=== PATIENT | female | born 1940 | race Caucasian/White ===

== ENCOUNTER 2021-05-02 14:03 | Outpatient (CLI) | payer OTHER, SELFPAY ==
--- NOTE | 2021-05-02 14:26 | MM_ITS ---
WS: [id number] BILATERAL DIGITAL SCREENING MAMMOGRAPHY WITH CAD CLINICAL INFORMATION: SCREEN HISTORY: Screening mammogram. No current complaints. COMPARISON: TECHNIQUE: Bilateral CC and MLO views. FINDINGS: Scattered fibroglandular densities bilaterally. Vascular calcification. No suspicious focal mass, asy mmetry, calcifications, or architectural distortion. No evidence of malignancy. MM/[place] [id number] IMPRESSION: BI-RADS: 2-Benign FOLLOW UP: 1 Year Follow-up Recommend return to annual screening mammography.
--- NOTE | 2021-05-02 14:28 | XR_ITS ---
WS: [id number] Exam: XR DEXA axial skeleton* [id number] Date/Time of Exam: 05/02/2021 2:56 PM Reason For Exam: OSTEOPOROSIS DEXA BONE DENSITOMETRY [employer] The L1-L4 bone mineral density measures 1.184 g/cm2. This corresponds to a T score of 0.0 and Z score of 1.3. Left femoral neck bone mineral density measures 0.827 g/cm2. This corresponds to T score of -1.4 and Z score of 0.3. Right femoral neck bone mineral density measures 0.833 g/cm2. This corresponds to a T score of -1.4 a nd Z score of 0.3. Mean femoral neck bone mineral density measures 0.830 g/cm2. This corresponds to a T score of -1.4 an d Z score of 0.3 XR/XR DEXA axial skeleton* [id number] IMPRESSION: Bone mineral density lies in the osteopenic range. Refer to detailed summary.
== END 2021-05-02 14:04 | disposition home or self-care (01) ==
PROVIDERS: PCP Family Medicine; Visit Provider Nurse Practitioner Family
DX: Z12.31 Encounter for screening mammogram for malignant neoplasm of breast (principal); M81.0 Age-related osteoporosis without current pathological fracture
CPT/HCPCS: 77067; 77080

== ENCOUNTER 2021-06-17 11:07 | Outpatient (CLI) | payer MEDICARE, SELFPAY ==
--- NOTE | 2021-06-17 11:14 | USCV_ITS ---
TreyIsabell Age: 80 Gender: F : 1940 Exam Date: 06/17/2021 11:42 Ordering Phys: Allie Temple NP Technologist: Oksana Barron [place] [facility] [place] KNOWN AAA HISTORY: Diameter (cm) AP x Transverse x Length Velocity (cm/s) Waveform Prox Aorta: 1.93 x 2.20 x 101.20 Mid Aorta: 2.17 x 1.95 x 119.20 Distal Aorta: 4.07 x 4.03 x 8.90 110.90 Right Iliac Prox: 0.62 x 0.75 x 214.80 Left Iliac Prox: 0.80 x 0.66 x 203.80 Stent Prox Landing x x Aneurysmal Sac Max x x Lt Lat Sac Dim Rt Lat Sac Dim Stent Dist Landing x x Right Iliac Stent x x Left Iliac Stent x x Right Renal Art Left Renal Art FINDINGS: Fusiform dilatation of the infrarenal aorta. Mild diffuse plaques in the abdominal aorta Normal proximal common iliac artery dimensions CONCLUSIONS 1. Infrarenal abdominal aortic aneurysm measuring 4.07 x 4.03 x 8.90 cm. Fusiform shaped aneurysm with no evidence of dissection 2. Mild diffuse plaques in the abdominal aorta 3. Normal proximal common iliac artery dimensions. 4. Elevated velocities in the proximal common iliac arteries may suggest less than 50% stenosis Compared to the the study from 01/12/2019, there may not be a significant change in the size of the aneurysm Dr Joe Olivarez MD [facility] (Electronically Signed) Final Date: 17 June 2021 20:13 S
== END 2021-06-17 11:08 | disposition home or self-care (01) ==
LOC: US 11:09
PROVIDERS: PCP Family Medicine; Visit Provider Nurse Practitioner Family
DX: I71.9 Aortic aneurysm of unspecified site, without rupture (principal); I70.0 Atherosclerosis of aorta
CPT/HCPCS: 93978

== ENCOUNTER → 2022-05-13 14:06 | Outpatient (BNVA) | payer MEDICARE, SELFPAY | PROVIDERS: PCP Family Medicine; Visit Provider Specialist | DX: M25.561 Pain in right knee (principal); M17.0 Bilateral primary osteoarthritis of knee; I71.4 Abdominal aortic aneurysm, without rupture | CPT/HCPCS: 73560; 73565; 99204 ==

== ENCOUNTER → 2022-05-28 08:38 | Outpatient (BNVA) | payer MEDICARE, SELFPAY | PROVIDERS: PCP Family Medicine; Visit Provider Thoracic Surgery (Cardiothoracic Vascular Surgery) | DX: I71.4 Abdominal aortic aneurysm, without rupture (principal) | CPT/HCPCS: 99203 ==

== ENCOUNTER 2022-06-17 11:34 | Outpatient (CLI) | payer MEDICARE, SELFPAY ==
--- NOTE | 2022-06-17 11:46 | MM_ITS ---
WS: [id number] BILATERAL SCREENING DIGITAL TOMOSYNTHESIS MAMMOGRAM WITH CAD HISTORY: SCREENING COMPARISON: 05/02/2021 and 07/31/2019 Bilateral CC and MLO views with tomosynthesis and synthetic mammography submitted. Computer aided det ection analyzed. Breast composition: There are scattered areas of fibroglandular density. No suspicious masses, microc alcifications or architectural distortion. Benign breast arterial calcifications. MM/[place] [id number] IMPRESSION: BI-RADS: 2-Benign FOLLOW UP: 1 Year Follow-up
== END 2022-06-17 11:35 | disposition home or self-care (01) ==
PROVIDERS: PCP Family Medicine; Visit Provider Family Medicine
DX: Z12.31 Encounter for screening mammogram for malignant neoplasm of breast (principal)
CPT/HCPCS: 77063; 77067

== ENCOUNTER 2022-07-22 07:24 | Outpatient (CLI) | payer MEDICARE, SELFPAY ==
--- NOTE | 2022-07-22 08:00 | USCV_ITS ---
Isabell Yang Age: 82 Gender: F : 1940 Exam Date: 07/22/2022 07:40 Ordering Phys: Rhoda Cruz MD Technologist: GERRY [place] [facility] [place] [facility] [place]: AAA HISTORY: Diameter (cm) AP x Transverse x Length Velocity (cm/s) Waveform Prox Aorta: 1.37 x 1.93 x 85.30 Mid Aorta: 1.80 x 1.87 x 110.60 Distal Aorta: 4.05 x 3.87 x 8.94 87.00 Right Iliac Prox: 0.82 x 1.15 x 178.80 Left Iliac Prox: 0.89 x 0.89 x 166.30 Stent Prox Landing x x Aneurysmal Sac Max x x Lt Lat Sac Dim Rt Lat Sac Dim Stent Dist Landing x x Right Iliac Stent x x Left Iliac Stent x x Right Renal Art Left Renal Art FINDINGS: comparison 06/17/21 CONCLUSIONS Distal infrarenal fusiform AAA measuring 4.1 x 3.8 x 8.9cm AP x transverse x craniocaudal unchanged Normal common iliac arteries Moderate atheromatous disease Troy Nova MD (Electronically Signed) Final Date: 22 July 2022 11:35 S
== END 2022-07-22 07:25 | disposition home or self-care (01) ==
LOC: RAD 07:24
PROVIDERS: PCP Family Medicine; Visit Provider Specialist
DX: Z86.79 Personal history of other diseases of the circulatory system (principal); I71.40 Abdominal aortic aneurysm, without rupture, unspecified; I70.90 Unspecified atherosclerosis
CPT/HCPCS: 93978

== ENCOUNTER → 2022-10-19 13:10 | Outpatient (BNVA) | payer MEDICARE, SELFPAY | PROVIDERS: PCP Family Medicine; Visit Provider Specialist | DX: M17.0 Bilateral primary osteoarthritis of knee (principal) | CPT/HCPCS: 99213 ==

== ENCOUNTER 2022-12-28 11:22 | Outpatient (CLI) | payer MEDICARE, SELFPAY ==
--- NOTE | 2022-12-28 11:00 | CT_ITS ---
WS: [id number] CT RIGHT KNEE, NONCONTRAST TECHNIQUE: Noncontrast CT of the RIGHT knee to include the RIGHT hip and ankle. CLINICAL INFORMATION: Right Total Knee Arthroplasty-[facility] PROTOCOL COMPARISON: None. DLP: 969.[address] scans at [facility] use at least one of these dose optimization techniques: automated e xposure control; mA and/or kV adjustment per patient size (includes targeted exams where dose is matc hed to clinical indication); or iterative reconstruction. FINDINGS: Mild degenerative arthritis both hips. Normal pubic rami. Vascular calcification. Small suprapatellar effusion. Moderate to advanced tricompartmental arthritis RIGHT knee worse in the medial joint gee rtment. Hypertrophic patella. Vascular calcification. Sigmoid diverticulosis. CT/CT knee RT [facility] IMPRESSION: Images obtained for preoperative purposes.
== END 2022-12-28 11:23 | disposition home or self-care (01) ==
LOC: RAD 11:28
PROVIDERS: PCP Family Medicine; Visit Provider Specialist
DX: M17.11 Unilateral primary osteoarthritis, right knee (principal); Z01.818 Encounter for other preprocedural examination; M16.0 Bilateral primary osteoarthritis of hip
CPT/HCPCS: 73700

== ENCOUNTER 2023-01-04 08:29 | Outpatient (CLI) | payer MEDICARE, SELFPAY ==
--- NOTE | 2023-01-04 08:45 | USCV_ITS ---
Isabell Yang Age: 82 Gender: F : 1940 Exam Date: 01/04/2023 08:42 Ordering Phys: Cedric Lema MD (Andy) ([email or web address]) Technologist: GERRY [place] [facility] [place]: aaa HISTORY: Diameter (cm) AP x Transverse x Length Velocity (cm/s) Waveform Prox Aorta: 2.61 x 2.38 x 48.50 Mid Aorta: 2.38 x 2.35 x 67.90 Distal Aorta: 4.55 x 4.82 x Right Iliac Prox: 1.17 x 1.26 x 196.80 Left Iliac Prox: 1.22 x 1.22 x 144.20 Stent Prox Landing x x Aneurysmal Sac Max x x Lt Lat Sac Dim Rt Lat Sac Dim Stent Dist Landing x x Right Iliac Stent x x Left Iliac Stent x x Right Renal Art Left Renal Art FINDINGS: Comparison:. 07/22/22. A fusiform abdominal aortic aneurysm is noted with a maximal diameter of 4.8 cm. Moderate increase in size of the aneurysm since the rior exam. AAA extends over a length of 9.5 cm. Ectatic abdominal aorta with evidence of atherosclerotic plaque noted. There is evidence of atherosclerotic plaque no significan stenosis in the right common iliac artery. There is evidence of atherosclerotic plaque no significan stenosis in the left common iliac artery. CONCLUSIONS Moderate increase in size of the AAA since the prior exam. Maximum diameter of 4.[address] Elaine De Leon DO (Electronically Signed) Final Date: 04 January 2023 09:35 S
== END 2023-01-04 08:30 | disposition home or self-care (01) ==
LOC: RAD 08:32
PROVIDERS: PCP Family Medicine; Visit Provider Thoracic Surgery (Cardiothoracic Vascular Surgery)
DX: I71.40 Abdominal aortic aneurysm, without rupture, unspecified (principal); I70.90 Unspecified atherosclerosis
CPT/HCPCS: 93005; 93978

== ENCOUNTER → 2023-01-11 11:22 | Outpatient (BNVA) | payer MEDICARE, SELFPAY | PROVIDERS: PCP Family Medicine; Visit Provider Specialist | DX: M17.11 Unilateral primary osteoarthritis, right knee (principal) | CPT/HCPCS: 99214 ==

== ENCOUNTER 2023-01-12 09:54 | Observation (INO) | payer MEDICARE, SELFPAY ==
[2023-01-04 09:16] VITALS: BMI 27.8
--- NOTE | 2023-01-04 09:30 | ECG_ITS ---
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 Measurements Intervals [place] Rate: 62 P: 61 NC: 183 QRS: -5 QRSD: 97 T: 20 QT: 410 QTc: 417 Interpretive Statements SINUS RHYTHM POSSIBLE INFERIOR MYOCARDIAL INFARCTION , PROBABLY OLD [30 ms Q WAVE IN II/aVF] No previous ECG available for comparison Electronically Signed On 01-04-2023 13:08:26 CDT by Kirk Birmingham M.D. [id number]
--- NOTE | 2023-01-04 09:58 | P.ANESASSM_ITS ---
Pre-Anesthetic Assessment Height/Weight: Height 1.63 m Weight 73.482 kg Operation Date: 01/12/23 07:00 Proposed Procedures p RIGHT TOTAL KNEE ARTHROPLAST WITH ITA ASSISTANCE 55491,M17.10(Right) - Rhoda Cruz MD Familial anesthetic complications: None Social No alcohol and No tobacco Exam alert, oriented x 3, clear to auscultation bilaterally and regular rate & rhythm Airway Mallampati: Class II Dentition: false and partials CV/HEM Hypertension AAA Chronic Renal Insufficiency GI Gastroesophageal Reflux Disease Anesthetic Plan ASA status: 3 Anesthesia: Regional (specify below) Risk of > 500 ml blood loss (7ml/kg in children): No Medications/Allergies Home Medications Medication Instructions Recorded Confirmed Last Taken Type alendronate 70 mg tablet mg PO 05/13/22 10/19/22 01/04/23 History diclofenac sodium 1 % topical gel 2 g topical QID 05/13/22 01/04/23 01/04/23 History (Arthritis Pain (diclofenac)) ezetimibe 10 mg tablet 10 mg PO DAILY 05/13/22 01/04/23 01/04/23 History tramadol 50 mg tablet 100 mg PO BID PRN Sleep 05/13/22 01/04/23 01/03/23 History lisinopril 5 mg tablet 20 mg PO DAILY 05/28/22 01/04/23 01/04/23 History cetirizine 10 mg capsule (Zyrtec) 10 mg PO DAILY PRN Allergic 01/04/23 01/04/23 01/03/23 History Symptoms famotidine 20 mg tablet 20 mg PO BID 01/04/23 01/04/23 01/03/23 History latanoprost 0.005 % eye drops 1 drp ophthalmic (eye) QPM 01/04/23 01/04/23 01/03/23 History spironolactone 25 1 tab PO DAILY 01/04/23 01/04/23 01/03/23 History mg-hydrochlorothiazide 25 mg tablet (Aldactazide) trazodone 100 mg tablet 100 mg PO DAILY 01/04/23 01/04/23 01/03/23 History Allergies Allergy/AdvReac Type Severity Reaction Status Date / Time No Known Allergies Allergy Verified 01/04/23 09:11 [facility] Anesthesia Social History Smoking and tobacco status: never smoked Second hand smoke exposure: No Smoking risk assessment/counseling performed?: No Alcohol intake: never Adopted: No Caregiver/support person: Yes Lives independently: No Housing: House Number of children: 4 Number of grandchildren: 8 service: No Current occupational status: retired Current occupational exposures/hazards: No Pets and animals: Yes History of recent travel: No Sexually active: No Current gender identity: Female Special klaus needs: No Agree to transfusion: No Data Anesthesia 01/04/23 09:30 01/04/23 09:30 Cardiac Studies: No Data to Display
[2023-01-04 09:59] LABS: Basophils % 0.6 %; Eosinophils # 0.1 10^3/uL (0.0-0.8); Eosinophils % 2.7 %; Hematocrit 37.5 % (37.0-47.0); Hemoglobin 12.1 g/dL (11.5-15.3); Lymphocytes # 1.6 10^3/uL (0.8-4.8); Lymphocytes % 29.5 %; Mean Corpuscular HGB Conc 32.3 g/dL (30.0-36.0); Mean Corpuscular Hemoglobin 31.4 pg (28.0-34.0); Mean Corpuscular Volume 97.4 fl (81-99); Mean Platelet Volume 10.9 fL (7.4-10.4); Monocytes # 0.5 10^3/uL (0.2-0.9); Monocytes % 9.3 %; Neutrophils # 3.04 10^3/uL (1.8-7.7); Neutrophils % 57.7 %; Nucleated Red Blood Cells % 0 %; Platelet Count 146 10^3/cmm (130-400); Red Blood Count 3.85 10^6/uL (4.1-5.3); Red Cell Distribution Width 11.8 % (12.1-15.1); White Blood Count 5.3 10^3/uL (4.0-10.0)
[2023-01-04 10:04] LABS: Alanine Aminotransferase 12 U/L (0-33); Alkaline Phosphatase 76 U/L (35-105); Anion Gap 11.7 (5-19); Aspartate Amino Transferase 21 U/L (0-32); Blood Urea Nitrogen 15 mg/dL (8-23); Calcium 8.9 mg/dL (8.5-10.5); Carbon Dioxide 28 mmol/L (22-29); Chloride 100 mmol/L (98-107); Glucose 96 mg/dL (65-115); Osmolality Calculated 283 mOsm/kg (285-295); Potassium 3.7 mmol/L (3.5-5.1); Sodium 136 mmol/L (136-145); Total Bilirubin 0.4 mg/dL (0.15-1.2)
[2023-01-04 10:41] LABS: Add Urine Culture? Yes; Bacteria Urine 4+ /hpf; Bilirubin Urine Neg (Negative); Blood Urine Neg (Negative); Glucose Urine UA Norm (Normal); Ketones Urine Negative (Negative); Leukocyte Esterase Urine Negative (Negative); Nitrate Urine Positive (Negative); Protein Urine Neg (Negative); RBC Urine RARE /hpf (0-2); Squamous Epithelial Cell Urine 0-4 /hpf (0-5); Urine Appearance Hazy (CLEAR); Urine Color Yellow (Yellow); Urobilinogen Urine Neg (Negative); WBC Urine 0-4 /hpf (0-5); pH Urine 5 (5-7)
[2023-01-12] VITALS (18 sets, daily range): BP systolic 95–152; BP diastolic 54–83; PULSE 76–102; RESP 13–18; TEMP 35.7–36.8; O2SAT 91–99
[2023-01-12] MEDS: acetaminophen 1,000 MG/100 ML PIGGYBACK 400 MG IV ×3 (05:54→22:35)
[2023-01-12] MEDS: CELEcoxib 200 mg Capsule 400 MG PO (05:56)
[2023-01-12] MEDS: gabapentin 300 mg Capsule PO (05:56)
[2023-01-12] MEDS: sodium chloride 0.9% 1,000 ML 30 ML IV (06:00)
--- NOTE | 2023-01-12 06:38 | P.HPUD_ITS ---
Surgery/Procedure H&P Update DATE OF PROCEDURE: January 12, 2023 DATE H&P PERFORMED: 01/11/23 H&P UPDATE INFORMATION: I have reviewed H&P completed within last 30 days, I have examined patient prior to procedure, No changes to prior documentation and H&P is in [facility] [place] EMR on date indicated PREOP DIAGNOSIS: Primary osteoarthritis right knee PLANNED PROCEDURE: Operation Date: 01/12/23 07:00 Proposed Procedures p RIGHT TOTAL KNEE ARTHROPLAST WITH ITA ASSISTANCE 57094,M17.10(Right) - Rhoda Cruz MD Related Problem List Diagnoses (1) Primary osteoarthritis of right knee:
--- NOTE | 2023-01-12 06:39 | P.ANESUD_ITS ---
Pre-Anesthetic Update Pre-Anesthetic Assessment: Date of Surgery/Procedure: 01/12/23 Preop Betty gnosis: Primary osteoarthritis right knee Proposed Procedure: Operation Date: 01/12/23 07:00 Proposed Procedures p RIGHT TOTAL KNEE ARTHROPLAST WITH ITA ASSISTANCE 56203,M17.10(Right) - Rhoda Cruz MD Any changes to Pre-Anesthetic Assessment?: No Last Intake: Intake Last Liquid Date 01/11/23 Last Liquid Time 14:00 Last Solid Date 01/11/23 Last Solid Time 14:00 Vitals: Temperature 97.8 F 01/12/23 05:42 Temperature Source Temporal Artery S can 01/12/23 05:42 Pulse Rate 76 01/12/23 05:42 Respiratory Rate 18 01/12/23 05:42 Blood Pressure 152/83 01/12/23 05:42 Blood Pressure Gwen n 106 01/12/23 05:42 Pulse Oximetry 94 01/12/23 05:42 Oxygen Delivery Me thod 01/12/23 05:42 Exam: Pre-Anes Outpt Exam: alert, oriented x 3, clear to auscultation bilaterally and regular rate & rhythm Cardiac Studies: No Data to Display
--- NOTE | 2023-01-12 06:40 | ANES.PROC ---
Anesthesia Procedures Procedure/Date: 01/12/23 Nerve Block ^: Nerve Block 1: Main Anesthesia: spinal anesthesia block Time Out Performed: Yes Consent: requested by attending/covering physician, from patient, risks and benefits reviewed and patient agrees to proceed Nerve block location: adductor canal (R) Anesthesia monitors applied: pulse oximetry, EKG, BP cuff and oxygen Nerve block position: supine Anesthetic Used: ropivicaine 0.5% (30 ml) and with decadron (4 mg) Ultrasound used to: recognize landmarks and visualize and ID femerol nerve Nerve Stimulator Used?: No Interscalene/Femoral BLK: 4 stimuplex 21 g needle used for position and inplane approach, visualize local anesthetic spread and no vascular puncture identified Injection: neg aspiration of heme Patient Tolerated Procedure: well Complications: none
[2023-01-12] MEDS: ceFAZolin 2,000 MG in sodium chloride 0.9% (plus) 50 ML 100 MG IV ×2 (07:03→17:35)
[2023-01-12] MEDS: ceFAZolin 1,000 mg SDV 1000 MG IRRIGATION (08:13)
[2023-01-12] MEDS: vancomycin 1,000 MG SDV 1000 MG XX (08:13)
--- NOTE | 2023-01-12 09:36 | PM.OP ---
Operative Report Date of procedure: January 12, 2023 Pre-op diagnosis: Primary osteoarthritis right knee Post-op diagnosis: Primary osteoarthritis right knee Post-op findings: Significant flexion contracture right knee with severe degenerative osteoarthritis and large osteophytes Procedure done: Right total knee arthroplasty with Darren guidance Implants: The Anneliese total knee system with a size 4 triathlon beaded cruciate retaining femur right, a triathlon titanium tibial component size 4 beaded, a triathlon X3 tibial bearing CS insert size 4 X 13 mm and a beaded triathlon titanium asymmetric patella size 32 x 10 mm Specimens removed/disposition: Bone, disposed of Pathology: none sent Surgeon: Rhoda Cruz Correspondence Analyst: [employer] [facility] operating room technicians Anesthesia: MAC (With spinal, ASA 3, and with preoperative regional block) Estimated blood loss (mL): 175 Tourniquet time (min): 0 (No tourniquet utilized) IV fluids (mL): 1,100 Urine output (mL): 400 Complications: None Condition: stable Disposition: PACU (Then to floor for postoperative rehabilitation and pain management) Brief History: This is an established 82 year old female patient here today same-day total knee arthroplasty with Darren guidance. Patient continues to have pain to the knee and utilizes a wheel chair due to pain and instability of the knee.? Previously, we have discussed total knee arthroplasty, and the patient and her daughter understand the risks and complications of the procedure. Consents have been signed, and questions answered in the office. Preoperatively, the patient is seen in the preoperative holding area and further questions are answered. The patient's leg is marked. Confirmation of planned procedure is discussed. Procedure: The patient was brought to the operating theater, and after undergoing spinal anesthesia with supplemental MAC, as well as an adductor canal block, ASA 3, the right lower extremity was prepped with Dura-Prep and draped in usual fashion following placement of a tourniquet high on the leg. The leg was then draped free.? Tourniquet was not elevated during the case.? A surgical pause was performed, and at the time of the surgical pause, we confirmed the site and side of surgery. Additionally, we confirmed the appropriate and timely administration of preoperative antibiotics, Ancef 2 g and Transexemic acid 1 g.? The availability of equipment was confirmed, and the patient's identity was verbalized as well.? An additional transexemic acid 1 g was given at the end of the surgical procedure as well. Following the surgical pause, an incision was made centering over the patella continuing proximally and distally as necessary to allow access to the knee joint. Dissection continued through skin and soft tissues using a scalpel. Hemostasis was obtained using electrocautery. The skin incision was followed by a median parapatellar arthrotomy. The leg was extended and the patella was able to be displaced laterally.? Appropriate arrays and markers were placed in appropriate position for use of the Darren.? Preoperative planning had been accomplished and was discussed in detail with the [facility] circulation sales representative.? Intraoperative mapping of the femur and tibia was accomplished after the arrays were placed.? Internal markers were also placed.? Once we had accomplished the Darren mapping, we began the appropriate resections for placement of the prosthesis.? The plan was for a cruciate retaining right total knee arthroplasty. Once appropriate mapping had been accomplished retraction was established using manual retraction by surgical technicians and also the Darren leg positioner and retractors.? The knee was evaluated.? There was significant osteoarthritic change as well as slight flexion contracture.? Appropriate bone resection was accomplished using the Darren.? The femur was sized to a size 4.? Following femoral cuts, attention was directed to the tibia.? Osteophytes were removed prior to this portion of the procedure.? We had performed a minimal medial release at the beginning of the procedure to allow for placement of the array.? Proximal tibia was evaluated, and it was felt that appropriate size for the tibia was a size 4.? Tray was noted to fit nicely with good coverage.? Rim fit was accomplished with the size 4. A trial reduction was accomplished after osteophytes have been removed as well as the medial and lateral menisci.? We had removed the anterior cruciate ligament at the beginning of the case and preserved the posterior cruciate ligament.? Trial reduction was accomplished with a size 4 femoral cruciate retaining component and a size 4 CS tibial bearing insert which was 9 mm in thickness initially. Sequential increase in size of the insert was accomplished. Final trial insert was a size 12 mm with plans for actual implant to be a size 13 mm..? Alignment was felt to be appropriate as well.? Trial components were removed after the femur had been drilled.? Prior to removal of the tibial tray which had been pinned in position with appropriate rotation as determined by the Darren plan, we broached the tibia.? Subsequently, the 4 drill holes were made for the prosthetic component.? All trial components were removed, and the wound was irrigated.? Plans were made for insertion of the prosthetic components.? Prior to this, the patella was manually prepared.? After resection of the articular surface with the jogging system, it was measured and measured a 35 mm patella.? We resected approximately 10 mm of patella.? Patellar height was restored with the patellar component. Once again, the wound was irrigated.? The Tritanium tibia was impacted into position.? The beaded femur was then impacted into position in a cementless fashion. The CS tibial insert was placed prior to placement of the femoral component. The patella was pressed into position with a patellar clamp.? Exparel was injected about the components deep and superficially.? The knee was then copiously irrigated with betadine and saline and suctioned dry. Attention was then directed to closure. Closure was accomplished with 0 Vicryl in the fascial tissues.? This was followed by Surgiflo and vancomycin powder.? Following this, a 2-0 Monocryl was used in the subcutaneous tissues, and the skin was closed with skin janice.? Care was taken to assure an excellent subcutaneous as well as skin closure.? A sterile dressing was then placed consisting of Dermabond Prineo, OpSite, sterile soft roll including over the foot, and an Cj wrap. The patient was returned the Recovery Room in a satisfactory condition. X-rays were obtained and reviewed there.? The patient will be discharged to the floor for postoperative rehabilitation and pain management. Related Problem List Diagnoses (1) Primary osteoarthritis of right knee:
--- NOTE | 2023-01-12 09:59 | XR_ITS ---
WS: [id number] EXAMINATION: XR knee RT 3V* [id number] REASON FOR EXAM: Status post right total knee arthroplasty COMPARISON: Pre-op study 05/13/2022 ORDER DATE: 01/12/2023 10:03 AM FINDINGS: There is satisfactory alignment of the prostheses at the knee joint surgical janice are noted in the scan and there is intra-articular and subcutaneous gas from recent operative intervention. There is satisfactory prosthesis positioning of the total knee replacement components. There are some vascular calcifications posteriorly.. XR/XR knee RT 3V* [id number] IMPRESSION: Stable appearance of the recent total knee arthroplasty.
--- NOTE | 2023-01-12 10:14 | PC.NURSE ---
Ochoa secured to left leg
[2023-01-12] MEDS: oxyCODONE 5 mg IR Tab/Cap PO ×2 (11:54→17:36)
[2023-01-12] MEDS: chlorhexidine gluconate 0.12% Btl 473 mL 30 ML MUCOUS MEM ×3 (11:56→22:34)
--- NOTE | 2023-01-12 12:53 | ANE.PACU2 ---
Inpatient post-anesthesia follow up: Airway intact: Yes Vital signs: Temperature 96.3 F Pulse Rate 77 Respiratory Rate 16 Blood Pressure 146/74 Pulse Oximetry 97 Oxygen Delivery Me thod Room Air Oxygen Flow Rate 8 Fraction of Inspir ed Oxygen Hydration adequate: Yes Nausea and vomiting: No Pain level: 1 Mental status: Baseline
[2023-01-12] MEDS: calcium carbonate 500 mg Chew Tablet 1000 MG PO (17:34)
[2023-01-12] MEDS: sennosides-docusate Tablet 2 TAB PO (17:34)
[2023-01-12] MEDS: sulfamethoxazole-trimeth DS 160-800 mg Tablet 1 TAB PO (17:34)
[2023-01-12] MEDS: iron polysaccharide complex 150 mg Capsule PO (17:35)
[2023-01-12] MEDS: mupirocin oint 22 gm 1 APPLIC NASAL (17:35)
[2023-01-12] MEDS: CELEcoxib 200 mg Capsule PO (17:35)
[2023-01-12] MEDS: famotidine 20 mg Tablet PO (17:35)
[2023-01-12] MEDS: latanoprost 0.005% Op Soln 2.5 mL Btl 1 DROP OPHTHALMIC (22:34)
[2023-01-13] MEDS: ceFAZolin 2,000 MG in sodium chloride 0.9% (plus) 50 ML 100 MG IV ×2 (00:14→10:11)
[2023-01-13 04:00] VITALS: BP 104/58; PULSE 86; RESP 15; TEMP 36.7; O2SAT 90
[2023-01-13 05:47] LABS: Basophils % 0.1 %; Hematocrit 26.4 % (37.0-47.0); Hemoglobin 8.4 g/dL (11.5-15.3); Lymphocytes % 11.2 %; Mean Corpuscular HGB Conc 31.8 g/dL (30.0-36.0); Mean Corpuscular Hemoglobin 31.3 pg (28.0-34.0); Mean Corpuscular Volume 98.5 fl (81-99); Mean Platelet Volume 11.1 fL (7.4-10.4); Monocytes # 0.7 10^3/uL (0.2-0.9); Monocytes % 8.7 %; Neutrophils # 6.77 10^3/uL (1.8-7.7); Neutrophils % 79.8 %; Nucleated Red Blood Cells % 0 %; Platelet Count 124 10^3/cmm (130-400); Red Blood Count 2.68 10^6/uL (4.1-5.3); Red Cell Distribution Width 12.1 % (12.1-15.1); White Blood Count 8.5 10^3/uL (4.0-10.0)
[2023-01-13 06:02] LABS: Anion Gap 12.7 (5-19); Blood Urea Nitrogen 20 mg/dL (8-23); Carbon Dioxide 23 mmol/L (22-29); Chloride 107 mmol/L (98-107); Glucose 94 mg/dL (65-115); Osmolality Calculated 288 mOsm/kg (285-295); Potassium 4.7 mmol/L (3.5-5.1); Sodium 138 mmol/L (136-145)
[2023-01-13] MEDS: CELEcoxib 200 mg Capsule PO (06:26)
[2023-01-13] MEDS: acetaminophen 1,000 MG/100 ML PIGGYBACK 400 MG IV (06:26)
[2023-01-13 07:50] VITALS: PULSE 79; RESP 16; O2SAT 95
[2023-01-13 07:58] VITALS: BP 137/67; PULSE 88; RESP 16; TEMP 36.9; O2SAT 96
--- NOTE | 2023-01-13 08:56 | PC.NURSE ---
22 gauge inserted into left forearm. Flushed with 10mL of NS and got blood return. No pain upon assessment.
--- NOTE | 2023-01-13 09:15 | PC.CHAP ---
Pastoral Care Encounter/Spiritual Assessment Type of Contact [] Declined equipment planner visit [] Patient/Family/Request visit [] Outpatient visit [] Follow-up visit [] Physician referral [] Code/Alert [x] Routine visit [] Staff referral [] Actively dying [] Patient sleeping [] Family support [] [] Out of room [] Palliative care [] [] Receiving care in room [] Pre-surgical visit [] Trauma [] Long length of stay [] ICU visit [] Other: Relational/Emotional Strength [x] Patient feels connected with others/family/visitors/staff [] Distress [] Loneliness/isolation [] Abandonment Spirituality of Patient [x] Person of Holly [x] Attends Taoist of their Holly [x] Believes in Prayer [x] Reads Bible or Temple materials [] There are Spiritual issues to be addressed Commercial Lending Assistant Interventions [x] Prayer [x] Active listening [x] Non-anxious presence [x] Spiritual/emotional support [] Crisis/trauma care [] Spiritual counseling [] Bereavement support [] Provided bereavement packet [] Provided Bible/devotional materials [] Provided toy/stuffed animal, coloring book to patient or family member [] Provided Communion [] Anointing/Vida [] Salvation [x] Completed spiritual assessment [] Other: Impact on Illness or Injury [] Angry [] Fearful [] Anxious [] Often cries [] Exhaustion [] Unable to work [] Unable to attend taoist [] Unable to walk/stand [] Unable to read [] Unable to drive [] Unable to eat/drink [] Unable to sleep [] Unable to be with family [] Patient intubated [] Other: Summary Pt's daughter in room at the time of visit. She did most of the talking to equipment planner. Pt would speak Syrian but would also speak Colombian to her daughter. Did accept a Daily [employer] and daughter stated Pt can read Syrian but reads Colombian better. Hoping to be released today. Time spent with patient 5m
[2023-01-13] MEDS: iron polysaccharide complex 150 mg Capsule PO (09:44)
[2023-01-13] MEDS: lisinopril 20 mg Tablet PO (09:45)
[2023-01-13] MEDS: sulfamethoxazole-trimeth DS 160-800 mg Tablet 1 TAB PO (09:45)
[2023-01-13] MEDS: famotidine 20 mg Tablet PO (09:45)
[2023-01-13] MEDS: cholecalciferol (vitamin D3) 1,000 unit Tablet 1000 UNIT PO (09:45)
[2023-01-13] MEDS: multivitamin therapeutic Tablet 1 TAB PO (09:45)
[2023-01-13] MEDS: sennosides-docusate Tablet 2 TAB PO (09:45)
[2023-01-13] MEDS: ezetimibe 10 mg Tablet PO (09:45)
[2023-01-13] MEDS: calcium carbonate 500 mg Chew Tablet 1000 MG PO (09:46)
[2023-01-13] MEDS: atorvastatin 40 mg Tablet 20 MG PO (09:46)
[2023-01-13] MEDS: chlorhexidine gluconate 0.12% Btl 473 mL 30 ML MUCOUS MEM (09:48)
[2023-01-13 12:00] VITALS: BP 105/67; PULSE 80; RESP 16; TEMP 36.6; O2SAT 95
--- NOTE | 2023-01-13 13:21 | PM.DCS ---
Discharge Providers Date of Admission: 01/12/23 09:54 Date of Discharge: January 13, 2023 Attending Provider at Admission: Rhoda Cruz MD Attending Provider at Discharge: Rhoda Cruz MD Primary Care Provider: Darrion Mcdowell MD Diagnoses at Discharge Discharge Diagnosis (1) Status post total right knee replacement not using cement: Status: Acute Permanent problem details: Date of procedure: January 12, 2023 Diagnosis: Primary osteoarthritis right knee Post-op findings: Significant flexion contracture right knee with severe degenerative osteoarthritis and large osteophytes Procedure done: Right total knee arthroplasty with Darren guidance Implants: [employer] total knee system with a size 4 triathlon beaded cruciate retaining femur right, a triathlon titanium tibial component size 4 beaded, a triathlon X3 tibial bearing CS insert size 4 X 13 mm and a beaded triathlon titanium asymmetric patella size 32 x 10 mm (2) Primary osteoarthritis of right knee: Status: Acute Reason for Visit Reason for Visit: M17.10 Brief History: This is an established 82 year old female patient here today same-day total knee arthroplasty with Darren guidance. Patient continues to have pain to the knee and utilizes a wheel chair due to pain and instability of the knee.? Previously, we have discussed total knee arthroplasty, and the patient and her daughter understand the risks and complications of the procedure.? Consents have been signed, and questions answered in the office.? Preoperatively, the patient is seen in the preoperative holding area and further questions are answered.? The patient's leg is marked.? Confirmation of planned procedure is discussed. Hospital Course Hospital Course This 82-year-old woman was admitted for same-day surgery in the form of right total knee arthroplasty with Darren guidance. She tolerated this very nicely. Postoperatively, she was taken to the floor under observation status for postoperative pain management and initiation of rehabilitation. On the first postoperative day, the patient was seen in her room. She was able to straight leg raise without difficulty. Her large outer dressing was removed, and the under dressing was benign. There was some ecchymosis but minimal swelling. There was no pain to palpation of the calf indicating no evidence of early DVT. She was neurologically intact. She was working with physical therapy, and felt safe to be discharged home. Therefore on the first postoperative day, the patient was discharged home. She will be going to outpatient therapy. Physical Exam Const: COMMON NORMALS: no acute distress, average body habitus, patient oriented x3 and alert GENERAL APPEARANCE: cooperative and comfortable ORIENTATION/CONSCIOUSNESS: Yes awake HENMT: COMMON NORMALS: normocephalic and atraumatic HEAD & SCALP: normocephalic and atraumatic Eye: GENERAL EYE: appearance normal, both eyes and all related structures Chest: COMMONS NORMALS: normal inspection of the chest Resp: COMMON NORMALS: normal respiratory effort EFFORT & INSPECTION: Yes able to speak in complete sentences and Yes symmetric chest movement Extremity: RIGHT LOWER EXTREMITY: Yes knee joint (Outer dressing removed, some ecchymosis with no swelling) Right knee: Yes palpation (No significant tenderness.), Yes ROM (Able to straight leg raise.) and Yes neurovascular exam (No calf tenderness or other evidence of DVT.) Neuro: COMMON NORMALS: patient oriented x3 SENSORIUM/ORIENTATION: Yes alert Psych: COMMON NORMALS: mental status grossly normal APPEARANCE: Yes grossly normal ATTITUDE: Yes calm and Yes engaged ATTENTION/CONCENTRATION: Yes attention grossly intact Skin: COMMON NORMALS: no rashes or lesions noted GENERAL SKIN EXAM: no rashes or lesions noted Urinary Catheter Management: Ochoa: Cath Placed During This Visit: yes, but has since been removed by the nurse Reason for Continuing Indwelling Catheter: Decision to DC Catheter Urinary Catheter Date of Insertion: 01/12/23 Urinary Catheter Time of Insertion: 08:03 Date Urinary Catheter Removed: 01/13/23 Time Urinary Catheter Discontinued: 07:04 Discharge Data Studies Completed and Pending Completed Studies During Hospitalization Category Date Time Status XR knee RT 3V* 45110 Urgent Exams 01/12/23 09:59 Completed Radiology Impressions Knee X-Ray 01/12/23 09:59 IMPRESSION: Stable appearance of the recent total knee arthroplasty. Laboratory Results WBC 8.5 10^3/uL (4.0-10.0) 01/13/23 04:55 RBC 2.68 10^6/uL (4.1-5.3) L 01/13/23 04:55 Hgb 8.4 g/dL (11.5-15.3) L 01/13/23 04:55 Hct 26.4 % (37.0-47.0) L 01/13/23 04:55 MCV 98.5 fl (81-99) 01/13/23 04:55 MCH 31.3 pg (28.0-34.0) 01/13/23 04:55 MCHC 31.8 g/dL (30.0-36.0) 01/13/23 04:55 RDW 12.1 % (12.1-15.1) 01/13/23 04:55 Plt Count 124 10^3/cmm (130-400) L 01/13/23 04:55 MPV 11.1 fL (7.4-10.4) H 01/13/23 04:55 Neut % (Auto) 79.8 % 01/13/23 04:55 Lymph % (Auto) 11.2 % 01/13/23 04:55 [place] % (Auto) 8.7 % 01/13/23 04:55 Eos % (Auto) 0.0 % 01/13/23 04:55 Baso % (Auto) 0.1 % 01/13/23 04:55 Neut # (Auto) 6.77 10^3/uL (1.8-7.7) 01/13/23 04:55 Lymph # (Auto) 1.0 10^3/uL (0.8-4.8) 01/13/23 04:55 [place] # (Auto) 0.7 10^3/uL (0.2-0.9) 01/13/23 04:55 Eos # (Auto) 0.0 10^3/uL (0.0-0.8) 01/13/23 04:55 Baso # (Auto) 0.0 10^3/uL (0.0-0.1) 01/13/23 04:55 Nucleated RBC % (auto) 0 % 01/13/23 04:55 Nucleated RBCs # 0.0 /100WBC 01/13/23 04:55 Sodium 138 mmol/L (136-145) 01/13/23 04:55 Potassium 4.7 mmol/L (3.5-5.1) 01/13/23 04:55 Chloride 107 mmol/L (98-107) 01/13/23 04:55 Carbon Dioxide 23 mmol/L (22-29) 01/13/23 04:55 Anion Gap 12.7 (5-19) 01/13/23 04:55 BUN 20 mg/dL (8-23) 01/13/23 04:55 Creatinine 1.5 mg/dL (0.5-0.9) H 01/13/23 04:55 GFR Calculation Not Reportable 01/13/23 04:55 Glucose 94 mg/dL (65-115) 01/13/23 04:55 Calculated Osmolality 288 mOsm/kg (285-295) 01/13/23 04:55 Calcium 8.0 mg/dL (8.5-10.5) L 01/13/23 04:55 Total Bilirubin 0.4 mg/dL (0.15-1.2) 01/04/23 09:30 AST 21 U/L (0-32) 01/04/23 09:30 ALT 12 U/L (0-33) 01/04/23 09:30 Alkaline Phosphatase 76 U/L (35-105) 01/04/23 09:30 Total Protein 7.0 g/dL (6.6-8.7) 01/04/23 09:30 Albumin 4.0 g/dL (3.5-5.2) 01/04/23 09:30 Globulin 3.0 g/dL (1.3-4.6) 01/04/23 09:30 Urine Color Yellow (Yellow) 01/04/23 09:30 Urine Appearance Hazy (CLEAR) A 01/04/23 09:30 Urine pH 5 (5-7) 01/04/23 09:30 Ur Specific [place] 1.020 (1.005-1.030) 01/04/23 09:30 Urine Protein Neg (Negative) 01/04/23 09:30 Urine Glucose (UA) Norm (Normal) 01/04/23 09:30 Urine Ketones Negative (Negative) 01/04/23 09:30 Urine Blood Neg (Negative) 01/04/23 09:30 Urine Nitrate Positive (Negative) H 01/04/23 09:30 Urine Bilirubin Neg (Negative) 01/04/23 09:30 Urine Urobilinogen Neg mg/dL (Negative) 01/04/23 09:30 Ur Leukocyte Esterase Negative (Negative) 01/04/23 09:30 Urine RBC Rare /hpf (0-2) 01/04/23 09:30 Urine WBC 0-4 /hpf (0-5) H 01/04/23 09:30 Ur Squamous Epith Cells 0-4 /hpf (0-5) H 01/04/23 09:30 Amorphous Sediment Not Reportable 01/04/23 09:30 Urine Bacteria 4+ /hpf (NONE) H 01/04/23 09:30 Vitals Last Vital Signs Temp 97.9 F 01/13/23 12:00 Pulse 80 01/13/23 12:00 Resp 16 01/13/23 12:00 BP 105/67 01/13/23 12:00 Pulse Ox 95 01/13/23 12:00 O2 Del Method Room Air 01/13/23 12:00 O2 Flow Rate 8 01/12/23 10:00 Discharge Plan Discharge Patient Disposition: Home Condition: Stable Prescriptions: New acetaminophen 500 mg Tablet 1,000 mg PO Q8H 15 Days Qty: 90 0RF aspirin 325 mg Tablet,Delayed Release (Dr/Ec) 325 mg PO DAILY 15 Days Qty: 15 0RF oxycodone 5 mg Tablet 5 mg PO Q4H PRN (Reason: Moderate Pain) 7 Days Qty: 30 0RF Continued tramadol 50 mg tablet 100 mg PO BID PRN (Reason: Sleep) ezetimibe 10 mg tablet 10 mg PO DAILY alendronate 70 mg tablet 70 mg PO DIRECTED Rx Instructions: wednesday diclofenac sodium [Arthritis Pain (diclofenac)] 1 % gel 2 g topical QID Rx Instructions: apply to single elbow, wrist or hand; for hand includes palm/fingers/back of hand lisinopril 5 mg tablet 20 mg PO DAILY atorvastatin 20 mg tablet 20 mg PO DAILY sulfamethoxazole-trimethoprim [Bactrim DS] 800-160 mg tablet 1 tab PO BID 10 Days Qty: 20 0RF Rx Instructions: Take one tablet twice daily latanoprost 0.005 % Drops 1 drp OPHTHALMIC (EYE) QPM famotidine 20 mg Tablet 20 mg PO BID trazodone 100 mg Tablet 100 mg PO DAILY Zyrtec 10 mg Capsule 10 mg PO DAILY PRN (Reason: Allergic Symptoms) Discharge Orders: Discharge Order (Routine); Ordered 01/13/23 Ordered By: Rhoda Cruz Other Ambulatory Orders: Physical Therapy Eval and Treat Outpatient (Order) Timeframe: 2 Days Facility: [facility] - Location: Physical Therapy Ordered By: Rhoda Cruz Referrals: Rhoda Cruz MD [Physician] - 01/27/23 8:45 am Discharge Diet: Advance as tolerated and Usual diet Discharge Activity: Increase activity as tolerated, Limit activity as instructed, Use walker/crutches as instructed and As per PT/OT instructions Patient Instructions: Acetaminophen (By mouth), Aspirin (By mouth), Oxycodone, Rapid Release (By mouth), Knee Replacement (GEN), Joint Replacement Stoplight, Opioid Safety Activity Restrictions/Additional Instructions: Ice and elevation to right lower extremity. Range of motion, gait training, and strengthening as per physical therapy and home health. You may remove outer dressings, but keep dressing in place over the knee. Discharge Attestations Time Spent in Discharge Care*: greater than 30 min Specific Discharge Activities: educating patient, educating and/or supporting family/caregiver, documenting/other paperwork and evaluating patient/reviewing data Quality Metrics Clinical Quality Measures [ No reported AMI, CVA or VTE this stay] Coding Level of Care Code Acute Code for Chg Fwd Diagnoses Status post total right knee replacement not using cement Z96.651 Primary osteoarthritis of right knee M17.11
[2023-01-13 14:02] VITALS: RESP 18
[2023-01-13] MEDS: oxyCODONE 5 mg IR Tab/Cap PO (14:02)
[2023-01-13 14:39] VITALS: RESP 18
== END 2023-01-13 14:23 | disposition home or self-care (01) ==
LOC: OR 10:01 → MEDSURG 10:12
PROVIDERS: Admitting Provider Specialist; PCP Family Medicine; Visit Provider Specialist
PROC: 8E0Y0CZ Robotic Assisted Procedure of Lower Extremity, Open Approach (ICD-10-PCS; CPT 27447; principal; 2023-01-12 07:00)
DX: M17.11 Unilateral primary osteoarthritis, right knee (principal); M25.761 Osteophyte, right knee; I12.9 Hypertensive chronic kidney disease with stage 1 through stage 4 chronic kidney disease, or unspecified chronic kidney disease; N18.9 Chronic kidney disease, unspecified; K21.9 Gastro-esophageal reflux disease without esophagitis
CPT/HCPCS: 27447; 36415; 51702; 73562; 80048; 80053; 81001; 85025; 87077; 87086; 87186; 97110; 97116; 97161; 97165; C1776; C9290; G0378; J0131; J0690; J1100; J2370; J2704; J2795; J3370; J3490; J7030

== ENCOUNTER → 2023-01-27 08:54 | Outpatient (BNVA) | payer MEDICARE, SELFPAY | PROVIDERS: PCP Family Medicine; Visit Provider Nurse Practitioner Family | DX: Z47.89 Encounter for other orthopedic aftercare (principal); Z96.651 Presence of right artificial knee joint | CPT/HCPCS: 73560; 73565; 99024 ==

== ENCOUNTER → 2023-02-18 14:41 | Outpatient (BNVA) | payer MEDICARE, SELFPAY | PROVIDERS: PCP Family Medicine; Visit Provider Thoracic Surgery (Cardiothoracic Vascular Surgery) | DX: I71.40 Abdominal aortic aneurysm, without rupture, unspecified (principal) | CPT/HCPCS: 99213 ==

== ENCOUNTER → 2023-02-23 09:59 | Outpatient (BNVA) | payer MEDICARE, SELFPAY | PROVIDERS: PCP Family Medicine; Visit Provider Nurse Practitioner Family | DX: Z96.651 Presence of right artificial knee joint (principal); M17.12 Unilateral primary osteoarthritis, left knee | CPT/HCPCS: 73560; 73565; 99024; 99213 ==

== ENCOUNTER → 2023-05-24 12:53 | Outpatient (BNVA) | payer MEDICARE, SELFPAY | PROVIDERS: PCP Family Medicine; Visit Provider Specialist | DX: Z96.651 Presence of right artificial knee joint (principal); M17.0 Bilateral primary osteoarthritis of knee | CPT/HCPCS: 73560; 73565; 99213 ==

== ENCOUNTER 2023-06-14 10:03 | Outpatient (CLI) | payer MEDICARE, SELFPAY ==
--- NOTE | 2023-06-14 10:00 | CT_ITS ---
WS: [id number] CT LEFT knee, noncontrast HISTORY: left knee pain TECHNIQUE: Protocol for ITA total knee replacement has been obtained. This includes axial imaging th rough the LEFT hip, LEFT knee and LEFT ankle. DLP: 947.99 mGy.cm COMPARISON: 05/24/2023 Symmetric hip joints. No significant narrowing. No bony destruction. Degenerative disc disease at L5- S1. Moderate calcification in the iliac arteries. Sigmoid diverticulosis. Mild narrowing LEFT knee. Osteophytic ridging surrounding the knee joint. Moderate narrowing of the p atellofemoral joint. Small suprapatellar effusion. Popliteal artery calcifications. Negative LEFT ankle. No destructive process. IMPRESSION: CT imaging provided for ITA robotic total knee replacement.
== END 2023-06-14 10:04 | disposition home or self-care (01) ==
LOC: RAD 10:04
PROVIDERS: PCP Family Medicine; Visit Provider Specialist
DX: M25.562 Pain in left knee (principal); M51.37 Other intervertebral disc degeneration, lumbosacral region; K57.30 Diverticulosis of large intestine without perforation or abscess without bleeding
CPT/HCPCS: 73700

== ENCOUNTER → 2023-06-30 13:25 | Outpatient (BNVA) | payer MEDICARE, SELFPAY | PROVIDERS: PCP Family Medicine; Visit Provider Specialist | DX: M17.12 Unilateral primary osteoarthritis, left knee (principal) | CPT/HCPCS: 73560; 73565; 99214 ==

== ENCOUNTER 2023-07-09 11:15 | Outpatient (CLI) | payer MEDICARE, SELFPAY ==
[2023-07-09 12:05] LABS: Eosinophils # 0.2 10^3/uL (0.0-0.8); Eosinophils % 3.6 %; Hematocrit 33.9 % (36-47); Lymphocytes # 1.2 10^3/uL (0.8-4.8); Lymphocytes % 28.6 %; Mean Corpuscular HGB Conc 32.4 g/dL (30-55); Mean Corpuscular Hemoglobin 31.4 pg (27-33); Mean Corpuscular Volume 96.9 fl (85-98); Mean Platelet Volume 10.4 fL (7.4-10.4); Monocytes # 0.4 10^3/uL (0.2-0.9); Monocytes % 9.4 %; Neutrophils # 2.37 10^3/uL (1.8-7.7); Neutrophils % 57.4 %; Nucleated Red Blood Cells % 0 %; Platelet Count 157 10^3/cmm (157-399); Red Cell Distribution Width 12.9 % (12.1-15.1); White Blood Count 4.13 10^3/uL (3.29-11.43)
[2023-07-09 12:14] LABS: Add Urine Culture? Yes; Add Urine Microscopic? YES; Bacteria Urine 3+ /hpf; Bilirubin Urine Neg (Negative); Blood Urine 2+ (Negative); Glucose Urine UA Norm (Normal); Ketones Urine Negative (Negative); Leukocyte Esterase Urine 2+ (Negative); Nitrate Urine Positive (Negative); Protein Urine Trace (Negative); RBC Urine 0-4 /hpf (0-2); Squamous Epithelial Cell Urine 0-4 /hpf (0-5); Urine Appearance Cloudy (CLEAR); Urine Color Yellow (Yellow); Urobilinogen Urine Norm (Negative); WBC Urine >100 /hpf (0-5); pH Urine 5 (5-7)
[2023-07-09 12:25] LABS: Alanine Aminotransferase 15 U/L (0-33); Albumin Level 3.7 g/dL (3.5-5.2); Alkaline Phosphatase 80 U/L (35-105); Anion Gap 11.3 (5-19); Aspartate Amino Transferase 17 U/L (0-32); Blood Urea Nitrogen 15 mg/dL (8-23); Calcium 8.7 mg/dL (8.5-10.5); Carbon Dioxide 29 mmol/L (22-29); Chloride 102 mmol/L (98-107); Glucose 103 mg/dL (65-115); Osmolality Calculated 287 mOsm/kg (285-295); Potassium 4.3 mmol/L (3.5-5.1); Sodium 138 mmol/L (136-145); Total Bilirubin 0.4 mg/dL (0.15-1.2); Total Protein 6.7 g/dL (6.6-8.7)
== END 2023-07-09 11:16 | disposition home or self-care (01) ==
LOC: LAB 11:24
PROVIDERS: PCP Family Medicine; Visit Provider Specialist
DX: M17.12 Unilateral primary osteoarthritis, left knee (principal)
CPT/HCPCS: 36415; 80053; 81001; 85025; 87077; 87086; 87186

== ENCOUNTER 2023-07-14 13:49 | Outpatient (CLI) | payer MEDICARE, SELFPAY ==
--- NOTE | 2023-07-14 13:45 | USCV_ITS ---
Isabell Yang Age: 82 Gender: F : 1940 Exam Date: 07/14/2023 14:20 Ordering Phys: Rhoda Cruz MD Technologist: GERRY Exam Location: [facility] [place] Indication: AAA Increased in size. Preop exam for knee surg HISTORY: Diameter (cm) AP x Transverse x Length Velocity (cm/s) Waveform Prox Aorta: 1.73 x 1.75 x 73.50 Mid Aorta: 1.51 x 1.76 x 120.60 Distal Aorta: 4.59 x 4.54 x 9.25 77.70 Right Iliac Prox: 1.00 x 1.30 x 176.80 Left Iliac Prox: 0.81 x 0.98 x 191.70 Stent Prox Landing x x Aneurysmal Sac Max x x Lt Lat Sac Dim Rt Lat Sac Dim Stent Dist Landing x x Right Iliac Stent x x Left Iliac Stent x x Right Renal Art Left Renal Art FINDINGS: Comparison:. 01/04/23 A fusiform abdominal aortic aneurysm is noted with a maximal diameter of 4.6 cm. Extends over a length of 9.2 cm. There are no findings to suggest rupture of the abdominal aortic aneurysm. There is evidence of atherosclerotic plaque no significan stenosis in the right common iliac artery. There is evidence of atherosclerotic plaque no significan stenosis in the left common iliac artery. CONCLUSIONS No change seen from prior study. Maximum transverse diameter AAA of 4.[address] Elaine De Leon DO (Electronically Signed) Final Date: 14 July 2023 15:45 S
== END 2023-07-14 13:50 | disposition home or self-care (01) ==
PROVIDERS: PCP Family Medicine; Visit Provider Specialist
DX: Z01.810 Encounter for preprocedural cardiovascular examination (principal); M17.12 Unilateral primary osteoarthritis, left knee; I71.40 Abdominal aortic aneurysm, without rupture, unspecified
CPT/HCPCS: 93978

== ENCOUNTER → 2023-07-23 11:25 | Outpatient (BNVA) | payer MEDICARE, SELFPAY | PROVIDERS: PCP Family Medicine; Visit Provider Family Medicine | DX: Z01.818 Encounter for other preprocedural examination (principal) | CPT/HCPCS: 81003 ==

== ENCOUNTER 2023-07-27 17:29 | Observation (INO) | payer MEDICARE, SELFPAY ==
[2023-07-27] VITALS (14 sets, daily range): BP systolic 102–177; BP diastolic 76–95; PULSE 60–88; RESP 14–18; TEMP 36.1–36.9; O2SAT 92–100; BMI 25.5
[2023-07-27] MEDS: acetaminophen 1,000 MG/100 ML PIGGYBACK 400 MG IV ×2 (12:45→21:16)
[2023-07-27] MEDS: CELEcoxib 200 mg Capsule 400 MG PO (12:46)
[2023-07-27] MEDS: gabapentin 300 mg Capsule PO (12:46)
[2023-07-27] MEDS: sodium chloride 0.9% 1,000 ML 30 ML IV (12:47)
--- NOTE | 2023-07-27 14:17 | W.PM.OPSUD ---
Surgery/Procedure H&P Update DATE OF PROCEDURE: July 27, 2023 DATE H&P PERFORMED: 07/16/23 H&P UPDATE INFORMATION: I have reviewed H&P completed within last 30 days, I have examined patient prior to procedure, No changes to prior documentation and H&P is in [facility] [place] [facility] on date indicated PREOP DIAGNOSIS: Primary osteoarthritis left knee PLANNED PROCEDURE: Operation Date: 07/27/23 13:30 Proposed Procedures p LEFT TOTAL KNEE ARTHROPLASTY WITH ITA GUIDANCE 80616,M17.10(Left) - Rhoda Cruz MD Related Problem List Diagnoses (1) Primary osteoarthritis of left knee:
[2023-07-27] MEDS: ceFAZolin 2,000 MG in sodium chloride 0.9% (plus) 50 ML 100 MG IV ×2 (15:05→21:17)
[2023-07-27] MEDS: BUPivacaine liposome 13.3 mg/mL SDV 10 mL 266 MG INFILTRATI (16:07)
[2023-07-27] MEDS: BUPivacaine 0.5% INJ 30 mL 20 ML INJECTION (16:07)
[2023-07-27] MEDS: ceFAZolin 1,000 mg SDV 2000 MG IRRIGATION (16:07)
[2023-07-27] MEDS: vancomycin 1,000 MG SDV 1000 MG XX (16:09)
--- NOTE | 2023-07-27 16:47 | ANES.PREANE2 ---
Pre-Anesthetic Assessment Height/Weight: Height 1.63 m Weight 67.585 kg Temp Pulse Resp BP Pulse Ox O2 Del Method 97.8 F 61 16 177/84 98 Room Air 07/27/23 12:30 07/27/23 12:30 07/27/23 12:30 07/27/23 12:30 07/27/23 12:30 07/27/23 12:30 Preop Diagnosis: Primary osteoarthritis left knee Operation Date: 07/27/23 13:30 Proposed Procedures p LEFT TOTAL KNEE ARTHROPLASTY WITH ITA GUIDANCE 70511,M17.10(Left) - Rhoda Cruz MD Familial anesthetic complications: none Was Beta Jean taken within 24 hours: N/A Was Clonidine taken within 24 hours: N/A Last intake: Intake Last Liquid Date 07/26/23 Last Liquid Time 18:00 Last Solid Date 07/26/23 Last Solid Time 18:00 Social No alcohol and No tobacco Exam alert, oriented x 3, clear to auscultation bilaterally and regular rate & rhythm Airway Submandibular: within normal limits Cervical ROM: within normal limits Mallampati: Class II Dentition: false CV/HEM Hypertension and Peripheral Vascular Disease (AAA) Metabolic Hyperlipidemia [facility] Osteoarthritis/DJD Anesthetic Plan ASA status: 3 Anesthesia: Regional (specify below) (SAB with adductor blk) Medications/Allergies Home Medications Medication Instructions Recorded Confirmed Last Taken Type alendronate 70 mg tablet 70 mg PO DIRECTED 05/13/22 07/27/23 07/25/23 History ezetimibe 10 mg tablet 10 mg PO DAILY 05/13/22 07/27/23 07/19/23 History cetirizine 10 mg capsule (Zyrtec) 10 mg PO DAILY PRN Allergic 01/04/23 07/27/23 07/26/23 History Symptoms famotidine 20 mg tablet 20 mg PO BID 01/04/23 07/27/23 07/26/23 History latanoprost 0.005 % eye drops 1 drp ophthalmic (eye) QPM 01/04/23 07/27/23 07/25/23 History trazodone 100 mg tablet 200 mg PO DAILY PRN Sleep 02/18/23 07/27/23 07/26/23 History atorvastatin 20 mg tablet 80 mg PO DAILY 07/16/23 07/27/23 07/26/23 History diphenhydramine HCl 25 mg tablet 25 mg PO DAILY PRN Itching 07/16/23 07/27/23 07/26/23 History (Allergy (diphenhydramine)) gabapentin 100 mg capsule 100 mg PO DAILY 07/16/23 07/27/23 07/26/23 History lisinopril 5 mg tablet 40 mg PO DAILY 07/16/23 07/27/23 07/26/23 History tramadol 50 mg tablet 50 mg PO BID PRN Pain 07/16/23 07/27/23 07/26/23 History Allergies Allergy/AdvReac Type Severity Reaction Status Date / Time No Known Allergies Allergy Verified 07/27/23 12:26 Current Medications Generic Name Dose Route Start Last Admin Trade Name Freq PRN Reason Stop Dose Admin Sodium Chloride 1,000 mls @ 30 mls/hr 07/27/23 12:15 07/27/23 12:47 Sodium Chloride 0.9% IV 07/28/23 12:14 30 mls/hr .Q24H SKYLER Administration PFSH Anesthesia Social History Smoking and tobacco/nicotine status: never used tobacco/nicotine Second hand smoke exposure: No Alcohol intake: never Substance/Drug Use: never Adopted: No Caregiver/support person: Yes Lives independently: No Housing: House Number of children: 4 Number of grandchildren: 8 service: No Current occupational status: retired Current occupational exposures/hazards: No Pets and animals: Yes Sexually active: No Do you think of yourself as: Straight/Heterosexual Current gender identity: Female Special klaus needs: No Agree to transfusion: No Data Anesthesia Cardiac Studies: No Data to Display Anesthesia Procedures Nerve Block Nerve Block 1: Main Anesthesia: spinal anesthesia block Time Out Performed: Yes Consent: requested by attending/covering physician, from patient, risks and benefits reviewed and patient agrees to proceed Nerve block location: adductor canal (left) Anesthesia monitors applied: pulse oximetry, EKG, BP cuff and oxygen Nerve block position: supine Anesthetic Used: ropivicaine 0.5% Amount of anesthesia used (mL): 20 Ultrasound used to: recognize landmarks Nerve Stimulator Used?: No Interscalene/Femoral BLK: 4 stimuplex 21 g needle used for position and inplane approach Injection: neg aspiration of heme Patient Tolerated Procedure: well Complications: none
--- NOTE | 2023-07-27 18:44 | XRR_ITS ---
PROCEDURE INFORMATION: Exam: XR Left Knee Exam date and time: 07/27/2023 6:50 PM Age: 83 years old Clinical indication: Other: Post op; Prior surgery; Surgery date: Post-operative (0-2 days); Surgery type: Lt knee; Additional info: Status post left total knee arthroplasty TECHNIQUE: Imaging protocol: Radiologic exam of the left knee. Views: 1 or 2 views. COMPARISON: No relevant prior studies available. FINDINGS: Tubes, catheters and devices: There is a left knee replacement with prosthetic components in anatomic alignment. Air is seen within the soft tissues related to the very recent surgery. Bones/joints: Normal. Soft tissues: There are metallic skin janice seen anteriorly. XR/XR knee LT 1-2V 06113 IMPRESSION: Left knee replacement.
--- NOTE | 2023-07-27 18:47 | PM.OP ---
Operative Report Date of procedure: July 27, 2023 Pre-op diagnosis: Severe degenerative arthritis left knee with varus deformity Post-op diagnosis: Severe degenerative arthritis left knee with varus deformity Post-op findings: Severe degenerative arthritis with complete obliteration of medial joint space. Procedure done: Left total knee arthroplasty with Darren guidance Implants: The [place] total knee system with a size 4 triathlon beaded cruciate retaining femur right, a triathlon titanium tibial component size 4 beaded, a triathlon X3 tibial bearing CS insert size 4 X 12 mm and a beaded triathlon titanium asymmetric patella size 32 x 10 mm Specimens removed/disposition: Bone, disposed of Pathology: None Surgeon: Rhoda Cruz MD Deputy Sheriff: Jazmyn Sauceda, nurse practitioner, who was necessary for positioning, exposure, and prosthetic placement Anesthesia: Spinal (With MAC, and supplemental adductor block, ASA 3) Estimated blood loss (mL): 150 Tourniquet time (min): 0 (Not utilized) IV fluids (mL): 1,000 Urine output (mL): 350 Complications: None Findings: Severe degenerative osteoarthritis was complete denudement of bone particularly on the medial compartment. Condition: stable Disposition: PACU (Then to floor for postoperative rehabilitation and pain management) Brief History: This is an established 83 year old female patient here today same-day left total knee arthroplasty with Darren guidance. Previously, in January of this year, the patient had a right total knee arthroplasty and has done well following this. Patient continues to have pain to the left knee.? Previously, we have discussed left total knee arthroplasty, and the patient and her daughter understand the risks and complications of the procedure.? Consents have been signed, and questions answered in the office.? Preoperatively, the patient is seen in the preoperative holding area and further questions are answered.? The patient's leg is marked.? Confirmation of planned procedure is discussed. Procedure: The patient was brought to the operating theater, and after undergoing spinal anesthesia with supplemental MAC, as well as an adductor canal block, ASA 3, the left lower extremity was prepped with Dura-Prep and draped in usual fashion following placement of a tourniquet high on the leg. The leg was then draped free.? Tourniquet was not elevated during the case.? A surgical pause was performed, and at the time of the surgical pause, we confirmed the site and side of surgery. Additionally, we confirmed the appropriate and timely administration of preoperative antibiotics, Ancef 2 g and Transexemic acid 1 g.? The availability of equipment was confirmed, and the patient's identity was verbalized as well.? An additional transexemic acid 1 g was given at the end of the surgical procedure as well. Following the surgical pause, an incision was made centering over the patella continuing proximally and distally as necessary to allow access to the knee joint. Dissection continued through skin and soft tissues using a scalpel. Hemostasis was obtained using electrocautery. The skin incision was followed by a median parapatellar arthrotomy. The leg was extended and the patella was able to be displaced laterally.? Appropriate arrays and markers were placed in appropriate position for use of the Darren.? Preoperative planning had been accomplished and was discussed in detail with the Darren customer development representative.? Intraoperative mapping of the femur and tibia was accomplished after the arrays were placed.? Internal markers were also placed.? Once we had accomplished the Darren mapping, we began the appropriate resections for placement of the prosthesis.? The plan was for a cruciate retaining right total knee arthroplasty. Once appropriate mapping had been accomplished retraction was established using manual retraction by surgical technicians and also the Darren leg positioner and retractors.? The knee was evaluated.? There was significant osteoarthritic change as well as slight flexion contracture.? Appropriate bone resection was accomplished using the Darren.? The femur was sized to a size 4.? Following femoral cuts, attention was directed to the tibia.? Osteophytes were removed prior to this portion of the procedure.? We had performed a minimal medial release at the beginning of the procedure to allow for placement of the array.? Proximal tibia was evaluated, and it was felt that appropriate size for the tibia was a size 4.? Tray was noted to fit nicely with good coverage.? Rim fit was accomplished with the size 4. A trial reduction was accomplished after osteophytes have been removed as well as the medial and lateral menisci.? We had removed the anterior cruciate ligament at the beginning of the case and preserved the posterior cruciate ligament.? Trial reduction was accomplished with a size 4 femoral cruciate retaining component and a size 4 CS tibial bearing insert which was 9 mm in thickness initially.? Sequential increase in size of the insert was accomplished.? Final trial insert was a size 11 mm with plans for actual implant to be a size 12 mm.? Alignment was felt to be appropriate as well.? Trial components were removed after the femur had been drilled.? Prior to removal of the tibial tray which had been pinned in position with appropriate rotation as determined by the Darren plan, we broached the tibia.? Subsequently, the 4 drill holes were made for the prosthetic component.? All trial components were removed, and the wound was irrigated.? Plans were made for insertion of the prosthetic components.? Prior to this, the patella was manually prepared.? After resection of the articular surface with the jogging system, it was measured and measured a 35 mm patella.? We resected approximately 8 mm of patella.? Patellar height was restored with the patellar component. Once again, the wound was irrigated.? The Tritanium tibia was impacted into position.? The beaded femur was then impacted into position in a cementless fashion. The CS tibial insert was placed prior to placement of the femoral component. The patella was pressed into position with a patellar clamp.? Exparel was injected about the components deep and superficially.? The knee was then copiously irrigated with betadine and saline and suctioned dry. Attention was then directed to closure. Closure was accomplished with 0 Vicryl in the fascial tissues.? This was followed by Surgiflo and vancomycin powder.? Following this, a 2-0 Monocryl was used in the subcutaneous tissues, and the skin was closed with skin janice.? Care was taken to assure an excellent subcutaneous as well as skin closure.? A sterile dressing was then placed consisting of Dermabond Prineo, OpSite, sterile soft roll including over the foot, and an Cj wrap. The patient was returned the Recovery Room in a satisfactory condition. X-rays were obtained and reviewed there.? The patient will be discharged to the floor for postoperative rehabilitation and pain management. Related Problem List Diagnoses (1) Primary osteoarthritis of left knee:
--- NOTE | 2023-07-27 19:06 | ANE.PACU2 ---
Inpatient post-anesthesia follow up: Airway intact: Yes Vital signs: Temperature 97 F Pulse Rate 65 Respiratory Rate 14 Blood Pressure 149/95 Pulse Oximetry 96 Oxygen Delivery Me thod Room Air Oxygen Flow Rate 6 Fraction of Inspir ed Oxygen Hydration adequate: Yes Nausea and vomiting: No Pain level: 1 Mental status: Baseline
[2023-07-27] MEDS: CELEcoxib 200 mg Capsule PO (21:17)
[2023-07-27] MEDS: chlorhexidine gluconate 0.12% Btl 473 mL 30 ML MUCOUS MEM (21:17)
[2023-07-27] MEDS: TRAMadol 50 mg Tablet PO (21:34)
[2023-07-28] VITALS (7 sets, daily range): BP systolic 130–170; BP diastolic 67–98; PULSE 83–91; RESP 16–19; TEMP 36.7–37.2; O2SAT 93–95
[2023-07-28] MEDS: ceFAZolin 2,000 MG in sodium chloride 0.9% (plus) 50 ML 100 MG IV ×2 (03:44→12:39)
[2023-07-28] MEDS: acetaminophen 1,000 MG/100 ML PIGGYBACK 400 MG IV ×2 (03:44→13:16)
[2023-07-28 05:46] LABS: Basophils % 0.3 %; Hematocrit 30.5 % (36-47); Lymphocytes # 0.4 10^3/uL (0.8-4.8); Lymphocytes % 6.2 %; Mean Corpuscular HGB Conc 32.8 g/dL (30-55); Mean Corpuscular Hemoglobin 31.9 pg (27-33); Mean Corpuscular Volume 97.4 fl (85-98); Mean Platelet Volume 10.9 fL (7.4-10.4); Monocytes # 0.3 10^3/uL (0.2-0.9); Monocytes % 4.6 %; Neutrophils # 6.14 10^3/uL (1.8-7.7); Neutrophils % 88.8 %; Nucleated Red Blood Cells % 0 %; Platelet Count 142 10^3/cmm (157-399); Red Blood Count 3.13 10^6/uL (3.85-5.65); Red Cell Distribution Width 12.2 % (12.1-15.1); White Blood Count 6.92 10^3/uL (3.29-11.43)
[2023-07-28 06:04] LABS: Blood Urea Nitrogen 11 mg/dL (8-23); Calcium 8.5 mg/dL (8.5-10.5); Carbon Dioxide 26 mmol/L (22-29); Chloride 104 mmol/L (98-107); Creatinine Clr Calc Pharmacy 49.4627; Glucose 106 mg/dL (65-115); Osmolality Calculated 288 mOsm/kg (285-295); Sodium 139 mmol/L (136-145)
[2023-07-28] MEDS: calcium carbonate 500 mg Chew Tablet 1000 MG PO (08:22)
[2023-07-28] MEDS: atorvastatin 40 mg Tablet 80 MG PO (08:22)
[2023-07-28] MEDS: gabapentin 100 mg Capsule PO (08:22)
[2023-07-28] MEDS: ezetimibe 10 mg Tablet PO (08:22)
[2023-07-28] MEDS: CELEcoxib 200 mg Capsule PO (08:22)
[2023-07-28] MEDS: oxyCODONE 5 mg IR Tab/Cap PO ×2 (08:22→12:39)
[2023-07-28] MEDS: lisinopril 20 mg Tablet 40 MG PO (08:23)
[2023-07-28] MEDS: famotidine 20 mg Tablet PO (08:23)
[2023-07-28] MEDS: cholecalciferol (vitamin D3) 1,000 unit Tablet 1000 UNIT PO (08:23)
[2023-07-28] MEDS: iron polysaccharide complex 150 mg Capsule PO (08:23)
[2023-07-28] MEDS: sennosides-docusate Tablet 2 TAB PO (08:23)
[2023-07-28] MEDS: aspirin 325 mg EC Tablet PO (08:23)
[2023-07-28] MEDS: chlorhexidine gluconate 0.12% Btl 473 mL 30 ML MUCOUS MEM ×2 (08:26→12:40)
[2023-07-28] MEDS: mupirocin oint 22 gm 1 APPLIC NASAL (09:41)
[2023-07-28] MEDS: multivitamin therapeutic Tablet 1 TAB PO (09:41)
--- NOTE | 2023-07-28 10:57 | PC.CHAP ---
Pastoral Care Encounter/Spiritual Assessment Type of Contact [] Declined maturity checker visit [] Patient/Family/Request visit [] Outpatient visit [] Follow-up visit [] Physician referral [] Code/Alert [x] Routine visit [] Staff referral [] Actively dying [] Patient sleeping [] Family support [] [] Out of room [] Palliative care [] [] Receiving care in room [] Pre-surgical visit [] Trauma [] Long length of stay [] ICU visit [] Other: Relational/Emotional Strength [] Patient feels connected with others/family/visitors/staff [] Distress [] Loneliness/isolation [] Abandonment Spirituality of Patient [] Person of Holly [] Attends Sabianist of their Holly [] Believes in Prayer [] Reads Bible or Synagogue materials [] There are Spiritual issues to be addressed Urology Physician Interventions [x] Prayer [] Active listening [] Non-anxious presence [] Spiritual/emotional support [] Crisis/trauma care [] Spiritual counseling [] Bereavement support [] Provided bereavement packet [] Provided Bible/devotional materials [] Provided toy/stuffed animal, coloring book to patient or family member [] Provided Communion [] Anointing/[place] [] Salvation [] Completed spiritual assessment [] Other: Impact on Illness or Injury [] Angry [] Fearful [] Anxious [] Often cries [] Exhaustion [] Unable to work [] Unable to attend buddhism [] Unable to walk/stand [] Unable to read [] Unable to drive [] Unable to eat/drink [] Unable to sleep [] Unable to be with family [] Patient intubated [] Other: Summary Time spent with patient 10 min
--- NOTE | 2023-07-28 13:51 | P.DS_ITS ---
Discharge Providers Date of Admission: 07/27/23 17:29 Date of Discharge: July 28, 2023 Attending Provider at Admission: Rhoda Cruz MD Attending Provider at Discharge: Rhoda Cruz MD Primary Care Provider: Darrion Mcdowell MD Diagnoses at Discharge Discharge Diagnosis (1) Primary osteoarthritis of left knee: Status: Acute (2) Status post total left knee replacement not using cement: Status: Acute Permanent problem details: Diagnosis: Severe degenerative arthritis left knee with varus deformity Post-op findings: Severe degenerative arthritis with complete obliteration of medial joint space. Procedure done: Left total knee arthroplasty with Darren guidance Implants: [employer] total knee system with a size 4 triathlon beaded cruciate retaining femur right, a triathlon titanium tibial component size 4 beaded, a triathlon X3 tibial bearing CS insert size 4 X 12 mm and a beaded triathlon titanium asymmetric patella size 32 x 10 mm Reason for Visit Reason for Visit: Brief History: This is an established 83 year old female patient here today same-day left total knee arthroplasty with Darren guidance. Previously, in January of this year, the patient had a right total knee arthroplasty and has done well following this.? Patient continues to have pain to the left knee.? Previously, we have discussed left total knee arthroplasty, and the patient and her daughter understand the risks and complications of the procedure.? Consents have been signed, and questions answered in the office.? Preoperatively, the patient is seen in the preoperative holding area and further questions are answered.? The patient's leg is marked.? Confirmation of planned procedure is discussed. Hospital Course Hospital Course Patient was admitted under observation status following same-day surgery for left total knee arthroplasty. She did well following the procedure. Pain was well managed with oral pain medications. There was no evidence of complication or DVT. The patient worked with physical therapy and was felt to be safe for discharge to home. Therefore, on postop day 1, she was discharged home to [facility] with therapy. Physical Exam Const: COMMON NORMALS: no acute distress, average body habitus, patient oriented x3 and alert GENERAL APPEARANCE: cooperative and comfortable ORIENTATION/CONSCIOUSNESS: Yes awake HENMT: COMMON NORMALS: normocephalic and atraumatic HEAD & SCALP: normocephalic and atraumatic Eye: GENERAL EYE: appearance normal, both eyes and all related structures Chest: COMMONS NORMALS: normal inspection of the chest Resp: COMMON NORMALS: normal respiratory effort EFFORT & INSPECTION: Yes able to speak in complete sentences and Yes symmetric chest movement Neuro: COMMON NORMALS: patient oriented x3 SENSORIUM/ORIENTATION: Yes alert Psych: COMMON NORMALS: mental status grossly normal APPEARANCE: Yes grossly normal ATTITUDE: Yes calm and Yes engaged ATTENTION/CONCENTRATION: Yes attention grossly intact Skin: COMMON NORMALS: no rashes or lesions noted GENERAL SKIN EXAM: no rashes or lesions noted Urinary Catheter Management: Ochoa: Cath Placed During This Visit: yes, but has since been removed by the nurse Reason for Continuing Indwelling Catheter: Decision to DC Catheter Urinary Catheter Date of Insertion: 07/27/23 Urinary Catheter Time of Insertion: 15:30 Date Urinary Catheter Removed: 07/28/23 Time Urinary Catheter Discontinued: 06:27 Discharge Data Studies Completed and Pending Completed Studies During Hospitalization Category Date Time Status XR knee LT 1-2V [id number] Urgent Exams 07/27/23 18:44 Completed Radiology Impressions Knee X-Ray 07/27/23 18:44 IMPRESSION: Left knee replacement. Laboratory Results WBC 6.92 10^3/uL (3.29-11.43) 07/28/23 05:19 RBC 3.13 10^6/uL (3.85-5.65) L 07/28/23 05:19 Hgb 10.00 g/dL (11.27-16.99) L 07/28/23 05:19 Hct 30.5 % (36-47) L 07/28/23 05:19 MCV 97.4 fl (85-98) 07/28/23 05:19 MCH 31.9 pg (27-33) 07/28/23 05:19 MCHC 32.8 g/dL (30-55) 07/28/23 05:19 RDW 12.2 % (12.1-15.1) 07/28/23 05:19 Plt Count 142 10^3/cmm (157-399) L 07/28/23 05:19 MPV 10.9 fL (7.4-10.4) H 07/28/23 05:19 Neut % (Auto) 88.8 % 07/28/23 05:19 Lymph % (Auto) 6.2 % 07/28/23 05:19 Drew % (Auto) 4.6 % 07/28/23 05:19 Eos % (Auto) 0.0 % 07/28/23 05:19 Baso % (Auto) 0.3 % 07/28/23 05:19 Neut # (Auto) 6.14 10^3/uL (1.8-7.7) 07/28/23 05:19 Lymph # (Auto) 0.4 10^3/uL (0.8-4.8) L 07/28/23 05:19 Drew # (Auto) 0.3 10^3/uL (0.2-0.9) 07/28/23 05:19 Eos # (Auto) 0.0 10^3/uL (0.0-0.8) 07/28/23 05:19 Baso # (Auto) 0.0 10^3/uL (0.0-0.1) 07/28/23 05:19 Nucleated RBC % (auto) 0 % 07/28/23 05:19 Nucleated RBCs # 0.0 /100WBC 07/28/23 05:19 Sodium 139 mmol/L (136-145) 07/28/23 05:19 Potassium 4.0 mmol/L (3.5-5.1) 07/28/23 05:19 Chloride 104 mmol/L (98-107) 07/28/23 05:19 Carbon Dioxide 26 mmol/L (22-29) 07/28/23 05:19 Anion Gap 13.0 (5-19) 07/28/23 05:19 BUN 11 mg/dL (8-23) 07/28/23 05:19 Creatinine 0.8 mg/dL (0.5-0.9) 07/28/23 05:19 GFR Calculation Not Reportable 07/28/23 05:19 Glucose 106 mg/dL (65-115) 07/28/23 05:19 Calculated Osmolality 288 mOsm/kg (285-295) 07/28/23 05:19 Calcium 8.5 mg/dL (8.5-10.5) 07/28/23 05:19 Vitals Last Vital Signs Temp 98.2 F 07/28/23 13:14 Pulse 91 07/28/23 13:14 Resp 18 07/28/23 13:14 BP 130/67 07/28/23 13:14 Pulse Ox 95 07/28/23 13:14 O2 Del Method Room Air 07/28/23 13:14 O2 Flow Rate 6 07/27/23 18:33 Discharge Plan Discharge Patient Disposition: Home Condition: Stable Prescriptions: New celecoxib 200 mg Capsule 200 mg PO Q12H 30 Days Qty: 60 0RF acetaminophen 500 mg Tablet 1,000 mg PO Q8H 15 Days Qty: 0 0RF aspirin 325 mg Tablet,Delayed Release (Dr/Ec) 325 mg PO DAILY 30 Days Qty: 0 0RF oxycodone 5 mg Tablet 5 mg PO Q4H PRN (Reason: Moderate Pain) 7 Days Qty: 30 0RF Continued ezetimibe 10 mg tablet 10 mg PO DAILY alendronate 70 mg tablet 70 mg PO DIRECTED Rx Instructions: wednesday tramadol 50 mg tablet 50 mg PO BID PRN (Reason: Pain) lisinopril 5 mg tablet 40 mg PO DAILY atorvastatin 20 mg tablet 80 mg PO DAILY gabapentin 100 mg capsule 100 mg PO DAILY diphenhydramine HCl [Allergy (diphenhydramine)] 25 mg tablet 25 mg PO DAILY PRN (Reason: Itching) latanoprost 0.005 % Drops 1 drp OPHTHALMIC (EYE) QPM famotidine 20 mg Tablet 20 mg PO BID Zyrtec 10 mg Capsule 10 mg PO DAILY PRN (Reason: Allergic Symptoms) trazodone 100 mg tablet 200 mg PO DAILY PRN (Reason: Sleep) Discharge Orders: Discharge Order (Routine); Ordered 07/28/23 Ordered By: Rhoda Cruz Other Ambulatory Orders: Physical Therapy Eval and Treat Outpatient (Order) Timeframe: 2 Days Facility: [facility] - Location: Physical Therapy Ordered By: Rhoda Cruz Referrals: Rhoda Cruz MD [Physician] - 08/11/23 8:45 am Discharge Diet: Advance as tolerated and Usual diet Discharge Activity: Increase activity as tolerated, Limit activity as instructed, Use walker/crutches as instructed and As per PT/OT instructions Patient Instructions: Aspirin (By mouth), Oxycodone, Rapid Release (By mouth), Celecoxib (By mouth), Joint Replacement Surgery (GEN), Joint Replacement Stoplight, Opioid Safety Activity Restrictions/Additional Instructions: Ice and elevation to left knee. Elevate left lower extremity. Maintain current dressing until it comes off on its own or is taken off in the office. You may shower, but do not soak your knee in water. You may weight-bear as tolerated. 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
== END 2023-07-28 14:56 | disposition home or self-care (01) ==
LOC: MEDSURG 17:29
PROVIDERS: Admitting Provider Specialist; PCP Family Medicine; Visit Provider Specialist
PROC: 8E0Y0CZ Robotic Assisted Procedure of Lower Extremity, Open Approach (ICD-10-PCS; CPT 27447; principal; 2023-07-27 13:30)
DX: M17.12 Unilateral primary osteoarthritis, left knee (principal); I10 Essential (primary) hypertension; E78.5 Hyperlipidemia, unspecified
CPT/HCPCS: 27447; 36415; 51702; 73560; 80048; 85025; 97110; 97161; 97166; 97535; C1776; C9290; G0378; J0131; J0690; J2704; J2795; J3370; J3490; J7030

== ENCOUNTER → 2023-08-11 09:41 | Outpatient (BNVA) | payer MEDICARE, SELFPAY | PROVIDERS: PCP Family Medicine; Visit Provider Nurse Practitioner | DX: Z96.652 Presence of left artificial knee joint (principal); M17.12 Unilateral primary osteoarthritis, left knee | CPT/HCPCS: 73560; 73565; 99024 ==

== ENCOUNTER → 2023-09-08 13:21 | Outpatient (BNVA) | payer MEDICARE, SELFPAY | PROVIDERS: PCP Family Medicine; Visit Provider Nurse Practitioner | DX: Z96.652 Presence of left artificial knee joint (principal); M17.12 Unilateral primary osteoarthritis, left knee | CPT/HCPCS: 73560; 73565; 99024 ==

== ENCOUNTER 2023-12-10 11:51 | Outpatient (CLI) | payer MEDICARE, SELFPAY ==
--- NOTE | 2023-12-10 11:55 | MM_ITS ---
WS: [id number] Bilateral screening 3D tomosynthesis digital mammogram, 12/10/2023 Clinical Data: SCREENING Comparison: 05/17/2022, 05/02/2021, 07/31/2019, 08/03/2017, 03/18/2016, 12/31/2014, 08/03/2014, 01/10/2014, 12/29/2013, 10/29/2010, 07/23/2006., Findings: The breast parenchymal pattern shows fibroglandular tissue. No spiculated masses or clustered calcifi cations are seen. There are no secondary signs of carcinoma. There are vascular calcifications in bot h breasts. Impression: 1. Negative bilateral mammogram unchanged. 2. Recommend annual screening mammograms. MM/[place] [id number] BIRADS: 1-Negative FOLLOW UP: 1 Year Follow-up The CAD mold checker was used.
== END 2023-12-10 11:52 | disposition home or self-care (01) ==
LOC: RAD 11:51
PROVIDERS: PCP Family Medicine; Visit Provider Family Medicine
DX: Z12.31 Encounter for screening mammogram for malignant neoplasm of breast (principal)
CPT/HCPCS: 77063; 77067

== ENCOUNTER 2023-12-28 15:01 | Outpatient (CLI) | payer MEDICARE, SELFPAY ==
--- NOTE | 2023-12-28 15:21 | CT_ITS ---
WS: [id number] CT HEAD WITH AND WITHOUT CONTRAST HISTORY: INTERMITTENT CONFUSION TECHNIQUE: Noncontrast 2.5 mm axial images obtained from the vertex to the skull base. Additional kalen ging performed at 2.5 mm axial images status post IV contrast. Bone and soft tissue windows are revie wed. All CT scans at [facility] [place] use at least one of these dose optimization techniques: autom ated exposure control; mA and/or kV adjustment per patient size (includes targeted exams where dose i s matched to clinical indication); or iterative reconstruction. CONTRAST: Omnipaque 350; 100 mL IV. DLP: 1963.81 mGy.cm COMPARISON: None available. No acute intracranial hemorrhage or mass effect. Mild symmetric atrophy. There is extensive, confluen t low-attenuation from small vessel ischemic disease throughout the white matter. No prior large terr itory infarct. Ischemic changes extend along the external capsules bilaterally. No enhancing mass or vascular malformations identified. There is extensive atherosclerotic plaque in the visualized vertebral and intracranial carotid arteries. Very dense calcified plaque although flow is still identified within the arteries. Dural venous sinuses are normally enhancing. Paranasal sinuses as visualized: Clear. Mastoid air cells: Clear. Calvarium and scalp: Intact. IMPRESSION: 1. Mild atrophy with severe small vessel ischemic disease throughout the white matter. 2. Severe calcified atherosclerotic plaque in the distal vertebral and intracranial carotid arteries . 3. No enhancing mass or mass effect. 4. No hydrocephalus.
[2023-12-28] MEDS: iohexol 350 mg/mL 500 mL Btl (per mL) IV (16:09)
== END 2023-12-28 15:02 | disposition home or self-care (01) ==
LOC: RAD 15:01
PROVIDERS: PCP Family Medicine; Visit Provider Family Medicine
DX: I67.2 Cerebral atherosclerosis (principal); I65.23 Occlusion and stenosis of bilateral carotid arteries; G31.9 Degenerative disease of nervous system, unspecified; R41.0 Disorientation, unspecified
CPT/HCPCS: 70470; Q9967